=== PATIENT | male | born 1970 | race Caucasian/White ===

== ENCOUNTER → 2016-09-23 | Outpatient (CLI) | payer BC ==
[~2016-09-23] MED LIST: ALPR1TAB; ASP325T; CIPR500T4 PO; MAGNESIUM OTC; OMEP20TA2 PO; ONDA8TAB13 PO; PHEN-640 PO; TAMS0.4C98 PO; TRM50T PO; VITAMIN B 12
--- OUTSIDE RECORDS SUMMARY | 2016-09-23 11:24 | XMS REPORT ---
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 Name Role Phone GAVIN MATT CP Unavailable Allergies No Known Allergies Problems Problem Type Condition Code Onset Dates Condition Status Assessment Bipolar 1 disorder, depressed F31.9 Active Problem Substance abuse F19.10 Active Problem Severe episode of recurrent major depressive disorder, without psychotic features F33.2 Active Problem Anxiety F41.9 Active Assessment Substance abuse F19.10 Active Assessment Severe episode of recurrent major depressive disorder, without psychotic features F33.2 Active Problem Bipolar 1 disorder, depressed F31.9 Active Assessment Anxiety F41.9 Active Medications No Known Medications Procedures Procedure Coding System Code Date Psych diagnostic evaluation, new patient CPT-4 [id number] Jun 19, 2016 Results No Known Results Summary Purpose eClinicalWorks Submission
== END ==
LOC: RAD 11:21
PROVIDERS: ATTEND Orthopaedic Surgery Orthopaedic Surgery of the Spine
DX: M54.12 Radiculopathy, cervical region (principal)

== ENCOUNTER → 2018-10-14 | Outpatient (CLI) | payer BC | LOC: RAD 15:03 | PROVIDERS: ATTEND Family Medicine | DX: M25.512 Pain in left shoulder (principal); Z53.8 Procedure and treatment not carried out for other reasons ==